=== PATIENT | female | born 1985 | race Caucasian/White ===

== ENCOUNTER 2024-04-20 17:03 | Emergency (ER) | payer MEDICAID ==
[~2024-04-20] VITALS: Ht 162.6 cm; Wt 72.7 kg
[2024-04-20 18:08] LABS: INFLUENZA B NAA NEGATIVE (NEGATIVE); RESPIRATORY SYNCYTIAL VIR NAA NEGATIVE (NEGATIVE)
[2024-04-20] MEDS ORDERED: DICLOFENAC SODI75 MG PO (18:47)
[2024-04-20] MEDS ORDERED: AMOXICILLIN500 MG PO (18:47)
[2024-04-20] MEDS ORDERED: SUBOXONE 8 MG-1 EAC1 SL (18:47)
[2024-04-20 18:48] VITALS: BP 127/68
== END 2024-04-20 18:49 | disposition home or self-care (01) ==
LOC: ED 17:03
PROVIDERS: Emergency Medicine
DX: U07.1 COVID-19 (principal)
CPT/HCPCS: 87502; 99283; U0002